=== PATIENT | female | born 1960 | race Caucasian/White ===

== ENCOUNTER → 2016-05-10 | Outpatient (CLI) | payer BC | LOC: RAD 16:30 | PROVIDERS: ATTEND Family Medicine | DX: R07.89 Other chest pain (principal); R10.12 Left upper quadrant pain | CPT/HCPCS: 36415; 71020; 85379 ==

== ENCOUNTER → 2016-05-10 | Outpatient (REF) | payer BC ==
[2016-05-10 12:40] LABS: BILIRUBIN,URINE Negative (Negative); CLARITY,URINE Clear; GLUCOSE, URINE (UA) Negative (Negative); LEUKOCYTE ESTERASE ,URINE Negative (Negative); UROBILINOGEN,URINE 0.2 mg/dL (0.2-1.0)
[2016-05-10 12:54] LABS: BASOPHILS % (AUTO) 1 % (0-2); EOSINOPHILS % (AUTO) 1 % (0-4); LYMPHOCYTES # (AUTO) 1.8 X10^3; MEAN CORPUSCULAR HEMOGLOBIN 29.4 PG (26.0-34.0); MEAN CORPUSCULAR HGB CONC 35.1 g/dL (31.0-37.0); MEAN CORPUSCULAR VOLUME 84 FL (80-100); MEAN PLATELET VOLUME 10.7 FL (6.0-9.5); MONOCYTES # (AUTO) 0.6 X10^3; MONOCYTES % (AUTO) 10 % (3-11); NEUTROPHILS # (AUTO) 3.7 X10^3; NEUTROPHILS % (AUTO) 60 % (51-67); PLATELET COUNT 224 10^3uL (150-450); WHITE BLOOD COUNT 6.12 10^3uL (4.0-11.0)
[2016-05-10 12:58] LABS: COLOR,URINE Light Yellow
[2016-05-10 12:59] LABS: RBC,URINE 0-2 /HPF; URINE CENTRIFUGED VOLUME 12 mL
[2016-05-10 13:00] LABS: ALBUMIN 4.6 g/dL (3.4-5.0); ALKALINE PHOSPHATASE 102 U/L (38-126); ANION GAP 15.4 MEQ/L (3-15); BUN/CREATININE RATIO 20 (10-20); CREATINE KINASE 83 U/L (30-135); TOTAL PROTEIN 7.9 g/dL (6.4-8.5)
== END ==
LOC: LAB 12:15
PROVIDERS: ATTEND Family Medicine
DX: R10.12 Left upper quadrant pain (principal); R07.89 Other chest pain
CPT/HCPCS: 80053; 81003; 81015; 82550; 82553; 84484; 85025; 85379

== ENCOUNTER → 2016-05-14 | Outpatient (REF) | payer BC ==
[2016-05-14 11:36] LABS: BASOPHILS % (AUTO) 1 % (0-2); EOSINOPHILS % (AUTO) 1 % (0-4); LYMPHOCYTES # (AUTO) 1.7 X10^3; MEAN CORPUSCULAR HEMOGLOBIN 29.4 PG (26.0-34.0); MEAN CORPUSCULAR HGB CONC 35.4 g/dL (31.0-37.0); MEAN CORPUSCULAR VOLUME 83 FL (80-100); MEAN PLATELET VOLUME 10.8 FL (6.0-9.5); MONOCYTES # (AUTO) 0.6 X10^3; MONOCYTES % (AUTO) 11 % (3-11); NEUTROPHILS # (AUTO) 3.1 X10^3; NEUTROPHILS % (AUTO) 57 % (51-67); PLATELET COUNT 226 10^3uL (150-450); WHITE BLOOD COUNT 5.45 10^3uL (4.0-11.0)
[2016-05-14 12:01] LABS: ALBUMIN 4.6 g/dL (3.4-5.0); ANION GAP 15.5 MEQ/L (3-15); TOTAL PROTEIN 7.7 g/dL (6.4-8.5)
== END ==
LOC: LAB 10:41
PROVIDERS: ATTEND Family Medicine
DX: R10.11 Right upper quadrant pain (principal)
CPT/HCPCS: 80053; 82150; 83690; 85025

== ENCOUNTER → 2016-07-09 | Outpatient (REF) | payer BC ==
[~2016-07-09] MED LIST: ALPR0.5T PO; HORMONE TROCHE PO; IBP200T PO; LACT1CAP62 PO; MAGN100T4 PO; PRED20TA PO; PROP5POW MC; hormone cream TP
[2016-07-09 12:25] LABS: ALBUMIN 4.4 g/dL (3.4-5.0); CALCULATED IONIZED CALCIUM 4.1 mg/dL (3.8-4.6); TOTAL PROTEIN 7.6 g/dL (6.4-8.5)
== END ==
LOC: LAB 11:48
PROVIDERS: ATTEND Family Medicine
DX: L23.89 Allergic contact dermatitis due to other agents (principal)
CPT/HCPCS: 80053

== ENCOUNTER → 2016-07-31 | Outpatient (CLI) | payer BC ==
[2016-07-31 16:10] LABS: BASOPHILS % (AUTO) 0 % (0-2); EOSINOPHILS # (AUTO) 0.1 10^3uL; EOSINOPHILS % (AUTO) 1 % (0-4); LYMPHOCYTES # (AUTO) 1.9 X10^3; MEAN CORPUSCULAR HEMOGLOBIN 28.6 PG (26.0-34.0); MEAN CORPUSCULAR HGB CONC 33.9 g/dL (31.0-37.0); MEAN CORPUSCULAR VOLUME 84 FL (80-100); MONOCYTES # (AUTO) 0.6 X10^3; MONOCYTES % (AUTO) 9 % (3-11); NEUTROPHILS # (AUTO) 3.4 X10^3; NEUTROPHILS % (AUTO) 57 % (51-67); PLATELET COUNT 227 10^3uL (150-450); WHITE BLOOD COUNT 5.91 10^3uL (4.0-11.0)
== END ==
LOC: LAB 15:59
PROVIDERS: ATTEND Physician Assistant Surgical
DX: R53.83 Other fatigue (principal); R20.0 Anesthesia of skin
CPT/HCPCS: 36415; 82607; 82746; 84443; 85025